=== PATIENT | male | born 1965 | race Caucasian/White ===

== ENCOUNTER → 2021-09-02 | Day surgery (SDC) | payer OTHER ==
[~2021-09-02] VITALS: Ht 172.7 cm; Wt 86.2 kg
[~2021-09-02] MED LIST: CELEXA40 MG PO; HYDROCODON-ACE1 EAC2 PO; LOW DOSE ASPIRI81 MG PO; TOPROL XL25 MG PO
[2021-09-02 06:47] LABS: BUN/CREATININE RATIO 26 (0-10)
== END | disposition home or self-care (01) ==
LOC: OR 05:19
PROVIDERS: Orthopaedic Surgery
DX: G56.03 Carpal tunnel syndrome, bilateral upper limbs (principal); G89.29 Other chronic pain; I48.91 Unspecified atrial fibrillation; Z79.01 Long term (current) use of anticoagulants; Z79.82 Long term (current) use of aspirin; Z79.899 Other long term (current) drug therapy
CPT/HCPCS: 80048; 93005; J0690; J1100; J1885; J2001; J2250; J2405; J2704; J3010; J7120